=== PATIENT | female | born 1955 | race Native Hawaiian/Other Pacific Islander ===

== ENCOUNTER 2022-03-15 13:27 | Outpatient (CLI) | payer OTHER | END 2022-03-15 19:04 | disposition home or self-care (01) | LOC: RAD 13:27 | PROVIDERS: ATTEND Family Medicine | DX: M25.512 Pain in left shoulder (principal); M54.59 Other low back pain; G80.9 Cerebral palsy, unspecified; M25.551 Pain in right hip; R26.81 Unsteadiness on feet; M25.561 Pain in right knee ==

== ENCOUNTER 2022-05-31 08:22 | Outpatient (CLI) | payer OTHER | END 2022-05-31 19:11 | disposition home or self-care (01) | LOC: MAMMO 08:22 | PROVIDERS: ATTEND Family Medicine | DX: M79.604 Pain in right leg (principal); M19.90 Unspecified osteoarthritis, unspecified site; Z12.31 Encounter for screening mammogram for malignant neoplasm of breast; Z13.820 Encounter for screening for osteoporosis; N95.8 Other specified menopausal and perimenopausal disorders ==

== ENCOUNTER 2022-10-31 10:57 | Outpatient (CLI) | payer OTHER ==
[2022-10-31 12:05] LABS: POTASSIUM 4.3 mmol/L (3.6-5.2)
[2022-10-31 12:14] LABS: PLATELET COUNT 411 K/uL (152-353)
== END 2022-10-31 20:23 | disposition home or self-care (01) ==
LOC: LABW 10:57
PROVIDERS: ATTEND Family Medicine
DX: R10.9 Unspecified abdominal pain (principal); G80.9 Cerebral palsy, unspecified; E66.9 Obesity, unspecified; E78.00 Pure hypercholesterolemia, unspecified; M19.90 Unspecified osteoarthritis, unspecified site; K21.9 Gastro-esophageal reflux disease without esophagitis; E55.9 Vitamin D deficiency, unspecified; Z79.899 Other long term (current) drug therapy
CPT/HCPCS: 36415; 80053; 80061; 81000; 82306; 83036; 83690; 83735; 84439; 84443; 84550; 85027; 87077; 87086; 87088; 87186

== ENCOUNTER 2023-01-10 10:31 | Outpatient (CLI) | payer OTHER | END 2023-01-10 19:11 | disposition home or self-care (01) | LOC: RAD 10:31 | PROVIDERS: ATTEND Student in an Organized Health Care Education/Training Program | DX: M54.12 Radiculopathy, cervical region (principal); M47.812 Spondylosis without myelopathy or radiculopathy, cervical region; M54.16 Radiculopathy, lumbar region; M47.816 Spondylosis without myelopathy or radiculopathy, lumbar region; M48.062 Spinal stenosis, lumbar region with neurogenic claudication ==